=== PATIENT | male | born 1980 | race Caucasian/White ===

== ENCOUNTER 2025-05-25 18:46 | Emergency (ER) | payer OTHER, SELFPAY ==
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
[2025-05-25 18:46] VITALS: BP 132/90; PULSE 100; RESP 18; TEMP 37.3; O2SAT 98
[2025-05-25 18:50] VITALS: BP 139/97; PULSE 107; RESP 20; TEMP 36.8; O2SAT 98
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
--- NOTE | 2025-05-25 19:13 | PC.NURSE ---
report to luna whitfield
--- OUTSIDE RECORDS SUMMARY | 2025-05-25 19:21 | XMS_ITS | Encounter Summary ---
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 Legal Sex Male 5:49 PM WET PROCESS OPERATOR Gender Identity Male 10/08/2021 8:37 AM WET PROCESS OPERATOR Sexual Orientation Straight 10/08/2021 8: 37 AM WET PROCESS OPERATOR documented as of this encounter Plan of Treatment Not on file documented as of this encounter Visit Diagnoses Not on filedocumented in this encounter Additional Health Concerns Infection Onset Date Last Indicated Resolved Time COVID-19 Rule Out 05/17/2024 05/17/2024 05/17/2024 11:41 AM CDT documented as of this encounter Care Teams Customer Relations Advisor Relationship Specialty Start Date End Date See Lenz MD [address] [place] [id number] PCP - General FAMILY PRACTICE 06/12/20 documented as of this encounter
--- OUTSIDE RECORDS SUMMARY | 2025-05-25 19:21 | XMS_ITS | Clinical Summary ---
Author Organization [facility] Address [address] [place] [address] Care Team Providers Care Gym Supervisor Name Role Phone See Lenz MD Primary Care Provider [phone] Allergies No known active allergies Medications cyclobenzaprine (FLEXERIL) 10 MG tablet Take 1 tablet (10 mg total) by mouth 3 (three) times daily. 10/24/2024 Active lisinopril (PRINIVIL) 40 MG tablet Take 1 tablet (40 mg total) by mouth daily. 10/24/2024 Active hydroCHLOROthia zide (HYDRODIURIL) 25 MG tablet Take 1 tablet (25 mg total) by mouth daily. 10/24/2024 Active famotidine (PEPCID) 20 MG tablet Take 1 tablet (20 mg total) by mouth 2 (two) times daily. 60 tablet 02/22/2025 Active ondansetron (ZOFRAN) 4 MG tablet Take 1 tablet (4 mg total) by mouth every 8 (eight) hours as needed for Nausea. 20 tablet 04/25/2025 Active amoxicillin-cla vulanate (AUGMENTIN) 875-125 MG tablet Take 1 tablet (875 mg total) by mouth 2 (two) times daily for 7 days. 14 tablet 04/25/2025 Active Problems Problem Noted Date Diagnosed Date Pain of left lower extremity 01/24/2024 Encounters Date Type Department Care Team Description 04/25/2025 10:19 AM CDT - 04/25/2025 12:35 PM CDT Emergency [facility] [address] [facility] [place] [address] Wendy Harris MD Abdominal Pain Discharge Disposition: Home or Self Care (Routine Discharge) 04/25/2025 Travel 02/22/2025 10:19 AM CDT - 02/22/2025 11:25 AM CDT [facility] [address] [facility] [place] [address] Puneet Truong, Gout Pain Discharge Disposition: Home or Self Care (Routine Discharge) 02/22/2025 Travel from Last 3 Months Family History Medical History Relation Comments No Known Problems Mother Relation Status Comments Father Mother Alive Social History Tobacco Use Types Packs/Day Years Used Date Smoking Tobacco: Every Day Cigarettes Smokeless Tobacco: Never Tobacco Cessation:Ready to Q uit: Not Asked; Counseling Given: Not Answered Alcohol Use Standard Drinks/Week Comments Not Currently 0 (1 standard drink = 0.6 oz pur e alcohol) Sex and Gender Information Value Date Recorded Sex Assigned at Male 10/31/2024 12:46 PM 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 SERVICE TECHNICIAN Legal Sex Male 5:49 PM HUMAN SERVICE TECHNICIAN Gender Identity Male 10/08/2021 8:37 AM HUMAN SERVICE TECHNICIAN Sexual Orientation Straight 10/08/2021 8: 37 AM HUMAN SERVICE TECHNICIAN Last Filed Vital Signs Vital Sign Reading Time Taken Comments Blood Pressure 117/64 04/25/2025 12:30 PM CDT Pulse 87 04/25/2025 12:30 PM CDT Temperature 36.3 C (97.4 F) 04/25/2025 10:20 AM CDT Respiratory Rate 17 04/25/2025 12:3 0 PM CDT Oxygen Saturation 93% 04/25/2025 12: 30 PM CDT Inhaled Oxygen Concentration - - Weight 104.5 kg (230 lb 6.4 oz) 025 10:20 AM CDT Height 172.7 cm (5' 8) 04/25/2025 10:2 0 AM CDT Body Mass Index 35.03 04/25/2025 10:20 AM CDT Plan of Treatment Health Maintenance Due Date Last Done Comments Annual Physical 02/19/1984 Hepatitis C 1999 DTaP, Tdap and Td Vaccines (1 - Tdap) 02/19/2000 12/19/1985, 04/22/1983, 1981, Additional history exists Hepatitis B Vaccines (1 of 3 - 19+ 3-dose series) 02/19/2000 Pneumococcal Vaccine: Pediatrics (0 to 5 Years) and At-Risk Patients (6 to 49 Years) (1 of 2 - PCV) 02/19/2000 HPV Vaccines (1 - 3-dose SCDM series) 02/19/2008 COVID-19 Vaccine (2023- season) 2024 Meningococcal B Vaccine Aged Out No l onger eligible based on patient's age to complete this topic Meningococcal Vaccine Aged Out No mamie celia eligible based on patient's age to complete this topic RSV Immunizations Under 20 Months Aged Out No longer eligible based on patient's age to complete this topic Procedures Procedure Name Priority Date/Time Associated Diagnosis Comments CT ABD+PEL W CON STAT 04/25/2025 11:4 1 AM CDT HC URINALYSIS AUTO W/MICRO STAT 04/25/2025 11:30 AM CDT LIPASE STAT 04/25/2025 10:58 AM CDT HEPATIC FUNCTION PANEL STAT 10:58 AM CDT BASIC METABOLIC PANEL STAT 04/25/2025 10:58 AM CDT CBC W/DIFF AUTOMATED STAT 04/25/2025 10:58 AM CDT ANTINUCLEAR ANTIBODY WI RFX STAT 02/22/2025 10:57 AM CDT C-REACTIVE PROTEIN STAT 02/22/2025 10 :57 AM CDT SED RATE, ERYTHROCYTE (ESR) STAT 02/22/2025 10:57 AM CDT COMPREHENSIVE METABOLIC PANEL STAT 02/22/2025 10:57 AM CDT CBC W/DIFF AUTOMATED STAT 02/22/2025 10:57 AM CDT from Last 3 Months Results * CT ABD+PEL W CON (04/25/2025 11:41 AM CDT) Anatomical Region Laterality Modality Abdomen Computed Tomogra phy 04/25/2025 11:4 7 AM CDT Impressions 04/25/2025 12:02 PM CDT IMPRESSION: 1. Mild acute uncomplicated sigmoid diverticulitis as described. 2. Incidental right adrenal adenoma. Ordered By: WENDY HARRIS Interpreted By: Samuel Cortez MD, 04/25/2025 11:47 AM Narrative 04/25/2025 12:02 PM CDT [facility] [address] [facility] [place] [address] Examination: CT of the abdomen and pelvis with contrast. Exam time: 1136 hours. Clinical history: Lower abdominal pain. Nausea and vomiting. Leukocytosis. Normal serum lipase. Comparison: Aortoiliac CTA with runoff, 10/31/2024, noncontrast CT of the lumbar spine, 01/24/2024. Technique: Following the administration of intravenous contrast, spiral scanning was performed through the abdomen and pelvis. Coronal and sagittal reconstructions were performed from the data set. A dose lowering technique was used for this procedure, which may include, but is not limited to, dose reduction techniques, automated exposure control, the use of iterative reconstruction and ALARA/Image Gently techniques. Findings: Allowing for minor respiratory motion, the lung bases are clear. No pleural effusions are seen. Approximately 1.4 cm right adrenal nodule is stable in size since 01/24/2024 and of fat attenuation on the noncontrast images compatible with an incidental adenoma. No further workup or surveillance is required. The liver, spleen, gallbladder, pancreas, adrenals and kidneys are otherwise unremarkable. The urinary bladder is nondistended. A normal-appearing appendix is visible. Colonic diverticulosis is again evident. There are new mild infiltrative changes in the pericolic fat at the level of the mid to proximal sigmoid colon (coronal image 48 for example), compatible with diverticulitis. No abscess or other complication is identified. There are a few reactive appearing left common and external iliac lymph nodes. There is no ascites, free air, ivan lymphadenopathy or bowel distention. The caliber of the abdominal aorta is normal. Procedure Note Samuel Cortez MD - 04/25/2025 [facility] [address] [place] [address] Examination: CT of the abdomen and pelvis with contrast. Exam time: 1136 hours. Clinical history: Lower abdominal pain. Nausea and vomiting. Leukocytosis.Normal serum lipase. Comparison: Aortoiliac CTA with runoff, 10/31/2024, noncontrast CT of thelumbar spine, 01/24/2024. Technique: Following the administration of intravenous contrast, spiralscanning was performed through the abdomen and pelvis. Coronal andsagittal reconstructions were performed from the data set. A dose loweringtechnique was used for this procedure, which may include, but is notlimited to, dose reduction techniques, automated exposure control, the useof iterative reconstruction and ALARA/Image Gently techniques. Findings: Allowing for minor respiratory motion, the lung bases are clear.No pleural effusions are seen. Approximately 1.4 cm right adrenal noduleis stable in size since 01/24/2024 and of fat attenuation on thenoncontrast images compatible with an incidental adenoma. No furtherworkup or surveillance is required. The liver, spleen, gallbladder,pancreas, adrenals and kidneys are otherwise unremarkable. The urinarybladder is nondistended. A normal-appearing appendix is visible. Colonicdiverticulosis is again evident. There are new mild infiltrative changesin the pericolic fat at the level of the mid to proximal sigmoid colon(coronal image 48 for example), compatible with diverticulitis. No abscessor other complication is identified. There are a few reactive appearingleft common and external iliac lymph nodes. There is no ascites, free air,ivan lymphadenopathy or bowel distention. The caliber of the abdominalaorta is normal. IMPRESSION: 1. Mild acute uncomplicated sigmoid diverticulitis as described. 2. Incidental right adrenal adenoma. Ordered By: WENDY HARRIS Interpreted By: Samuel Cortez MD, 04/25/2025 11:47 AM us Wendy Harris MD CT Final Resul t * URINALYSIS (04/25/2025 11:30 AM CDT) COLOR (U) YELLOW 04/25/2025 11:58 AM CDT [facility] TRANSPARENCY CLEAR 04/25/2025 11:58 AM CDT [facility] SPECIFIC GRAVITY (U) 1.015 1.000 - 1.025 04/25/2025 11:58 AM CDT [facility] U PH 7.5 5.0 - 8.0 04/25/2025 11:58 AM CDT [facility] LEUKOCYTES (U) NEGATIVE NEGATIVE 04/25/2025 11:58 AM CDT [facility] NITRITES NEGATIVE NEGATIVE 04/25/2025 11:58 AM CDT [facility] PROTEIN RANDOM (U) NEGATIVE NEGATIVE 04/25/2025 11:58 AM CDT [facility] GLUCOSE (U) NEGATIVE NEGATIVE 04/25/2025 11:58 AM CDT [facility] KETONES MG/DL (U) NEGATIVE NEGATIVE 04/25/2025 11:58 AM CDT [facility] UROBILINOGEN 0.2 <1.0 EU/DL 04/25/2025 11:58 AM CDT [facility] BILIRUBIN (U) NEGATIVE NEGATIVE 04/25/2025 11:58 AM CDT [facility] BLOOD (U) NEGATIVE NEGATIVE 04/25/2025 11:58 AM CDT [facility] WBC/HPF 0-5 0 - 5 /HPF 04/25/2025 11:58 AM CDT [facility] RBC/HPF 0-5 0 - 5 /HPF 04/25/2025 11:58 AM CDT [facility] EPI/LPF OCCASIONAL /LPF 04/25/2025 11:58 AM CDT [facility] BACTERIA (U) TRACE /HPF 04/25/2025 11:58 AM CDT [facility] URINE SPECIMEN OBTAINED BY CLEAN CATCH PROCEDURE / Unknown 04/25/2025 11:30 AM CDT us Wendy Harris MD URINE ORDERABLES Final Resu lt [facility] [address] [place] [address], * (ABNORMAL) BASIC METABOLIC PANEL (04/25/2025 10:58 AM CDT) SODIUM S/P/B 138 136 - 145 MMOL/L 04/25/2025 11:25 AM CDT [facility] POTASSIUM S/P/B 4.2 3.5 - 5.1 MMOL/L 04/25/2025 11:25 AM CDT [facility] CHLORIDE S/P/B 101 98 - 107 MMOL/L 04/25/2025 11:25 AM CDT [facility] CO2 30.0 21.0 - 32.0 MMOL/L 04/25/2025 11:25 AM CDT [facility] GLUCOSE 126(H) 70 - 99 MG/DL 04/25/2025 11:25 AM T [facility] Comment: FASTING GLUCOSE 100 TO 125 MG/DL IS CONSISTENT WITH IMPAIRED FASTING GLUCOSE. FASTING GLUCOSE >125 MG/DL IS CONSISTENT WITH DIABETES. RANDOM GLUCOSE >200 MG/DL WITH HYPERGLYCEMIC SYMPTOMS IS CONSISTENT WITH DIABETES. PER ADA GUIDELINES BUN 14 6 - 24 MG/DL 04/25/2025 11:25 AM CDT [facility] CREATININE S/P/B 0.87 0.70 - 1.30 MG/DL 04/25/2025 11:25 AM CDT [facility] CALCIUM S/P/B 9.0 8.4 - 10.5 MG/DL 04/25/2025 11:25 AM CDT [facility] ANION GAP 7.0 5.0 - 15.0 MMOL/L 04/25/2025 11:25 AM T [facility] OSMOLALITY (CALC) 288 MOSM/KG 025 11:25 AM T [facility] Comment:REFERENCE RANGE NOT ESTABLISHED GFR ESTIMATE >90 >89 ML/MIN/1. 73 M2 04/25/2025 11:25 AM CDT [facility] GFR NOTES GFR REFERENCE S: 04/25/2025 11:25 AM CDT [facility] Comment: THE ESTIMATED GFR IS CALCULATED USING THE 2020 CKD-EPI EQUATION. THE FOLLOWING CATEGORIES FOR GRADING RENAL FUNCTION ARE RECOMMENDED BY THE INTERNATIONAL SOCIETY OF NEPHROLOGY (KDIGO 2012 CLINICAL PRACTICE GUIDELINE). G1,NORMAL OR HIGH: >89 ml/min/1.73 m2 G2,MILDLY DECREASED: 60-89 ml/min/1.73 m2 G3A,MILDLY TO MODERATELY DECREASED: 45-59 ml/min/1.73 m2 G3B,MODERATELY TO SEVERELY DECREASED: 30-44 ml/min/1.73 m2 G4,SEVERELY DECREASED: 15-29 ml/min/1.73 m2 G5,KIDNEY FAILURE: <15 ml/min/1.73 m2 04/25/2025 10:5 8 AM CDT us Wendy Harris MD LABORATORY Final Resul t [facility] [address] [place] [address], * HEPATIC FUNCTION PANEL (04/25/2025 10:58 AM CDT) BILIRUBIN TOTAL S/P/B 0.3 0.2 - 1.0 MG/DL 04/25/2025 11:25 AM CDT [facility] Comment: THIS ASSAY IS NOT RECOMMENDED FOR PATIENTS UNDERGOING TREATMENT WITH ELTROMBOPAG DUE TO THE POTENTIAL FOR FALSELY ELEVATED RESULTS. BILIRUBIN DIRECT S/P/B 0.1 0.0 - 0.2 MG/DL 04/25/2025 11:25 AM CDT [facility] ALKALINE PHOSPHATASE S/P/B 72 45 - 115 U/L 04/25/2025 11:25 AM CDT [facility] AST 18 15 - 37 U/L 04/25/2025 11:25 AM CDT [facility] ALT 21 16 - 63 U/L 04/25/2025 11:25 AM CDT [facility] TOTAL PROTEIN S/P/B 7.1 6.4 - 8.2 G/DL 04/25/2025 11:25 AM CDT [facility] ALBUMIN S/P/B 3.4 3.4 - 5.0 G/DL 04/25/2025 11:25 AM CDT [facility] 04/25/2025 10:5 8 AM CDT us Wendy Harris MD LABORATORY Final Resul t [facility] [address] [place] [address], * (ABNORMAL) CBC W/DIFF AUTOMATED (04/25/2025 10:58 AM CDT) Only the most recent of2 resultswithin the time period is included. WBC 10.96(H) 4.00 - 10.80 x10'3/uL 04/25/2025 11:07 AM CDT [facility] RBC 4.46(L) 4.50 - 6.10 x10'6/uL 04/25/2025 11:07 AM CDT [facility] HGB 12.5(L) 13.0 - 18.0 G/DL 04/25/2025 11:07 AM CDT [facility] HCT 37.7 37.0 - 52.0 % 04/25/2025 11:07 AM CDT [facility] MCV 84.5 78.0 - 100.0 FL 04/25/2025 11:07 AM CDT [facility] MCH 28.0 27.0 - 31.0 PG 04/25/2025 11:07 AM CDT [facility] MCHC 33.2 33.0 - 36.0 G/DL 04/25/2025 11:07 AM CDT [facility] RDW 15.2(H) 11.5 - 14.5 % 04/25/2025 11:07 AM CDT [facility] PLT 387(H) 150 - 350 x10'3/uL 04/25/2025 11:07 AM CDT [facility] MPV 10.1 7.4 - 10.4 FL 04/25/2025 11:07 AM CDT [facility] CBC COMMENT NORMAL REFERENCE RANGE NOT ESTABLISHED FOR THE PROPORTIONAL LEUKOCYTE DIFFERENTIAL. 04/25/2025 11:07 AM CDT [facility] NEUTROPHILS % 67.1 % 04/25/2025 11:07 AM CDT [facility] LYMPHOCYTES % 19.7 % 04/25/2025 11:07 AM CDT [facility] MONOCYTES % 8.5 % 04/25/2025 11:07 AM CDT [facility] EOSINOPHILS % 3.9 % 04/25/2025 11:07 AM CDT [facility] BASOPHILS % 0.6 % 04/25/2025 11:07 AM CDT [facility] IMMATURE GRANS % 0.2 % 04/25/20 11:07 AM CDT [facility] NRBC % 0.0 % 04/25/2025 11:07 AM CDT [facility] ABS. NEUTROPHILS 7.35 1.60 - 8.30 x10'3/uL 04/25/2025 11:07 AM CDT [facility] ABS. LYMPHOCYTES 2.16 0.80 - 4.70 x10'3/uL 04/25/2025 11:07 AM CDT [facility] ABS. MONOCYTES 0.93 0.00 - 1.50 x10'3/uL 04/25/2025 11:07 AM T [facility] ABS. EOSINOPHILS 0.43(H) 0.00 - 0.40 x10'3/uL 04/25/2025 11:07 AM CDT [facility] ABS. BASOPHILS 0.07 0.00 - 0.20 x10'3/uL 04/25/2025 11:07 AM CDT [facility] ABS. IMMATURE GRANULOCYTES 0.02 0.00 - 0.03 x10'3/uL 04/25/2025 11:07 AM T [facility] ABS. NUCLEATED RBC'S 0.00 0.00 - 0.01 x10'3/uL 04/25/2025 11:07 AM T [facility] 04/25/2025 10:5 8 AM CDT Wendy Harris MD LABORATORY Final Resul t Performing Organization Address City/[facility]/ZIP Co de Phone Number [facility] [address] [place] [address], * LIPASE (04/25/2025 10:58 AM CDT) LIPASE 33 16 - 77 UNITS/L 04/25/2025 11:25 AM CDT [facility] 04/25/2025 10:5 8 AM CDT Wendy Harris MD LABORATORY Final Resul t Performing Organization Address [facility] de Phone Number [facility] [address] [place] [address], * ANTINUCLEAR ANTIBODY WI RFX (02/22/2025 10:57 AM CDT) CARMELO 0.2 02/24/2025 4:42 PM CDT [facility] Comment: NEGATIVE: <0.7 RATIO CARMELO PROFILE AND TITER NOT PERFORMED THE CARMELO SCREEN TESTS FOR THE FOLLOWING ANTIBODIES BY EIA: SSA1 (RO), SSB1 (LA), MÉNDEZ, SCL70, JO1, CENTROMERE, HISTORICAL INTERPRETER HISTONE MUST BE ORDERED SEPARATELY DNA (DS) ANTIBODY 1.2 IU/ML 025 4:42 PM CDT [facility] Comment: NEGATIVE: <10 IU/mL EQUIVOCAL: 10 to 15 IU/mL POSITIVE: >15 IU/mL THIS QUANTITATIVE ASSAY IS CALIBRATED TO THE [employer]'S WO/80 STANDARD. THE LEVEL OF dsDNA AUTOANTIBODY GERERALLY CORRELATES WITH THE LEVEL OF DISEASE ACTIVITY IN SYSTEMIC LUPUS ERYTHMATOSUS 02/22/2025 10:5 7 AM CDT Puneet Truong DO LABORATORY Final Result Performing Organization Address City/[facility]/ZIP Co de Phone Number [facility] [address] [place] [address], [place] [phone] * (ABNORMAL) SED RATE, ERYTHROCYTE (ESR) (02/22/2025 10:57 AM CDT) Pathologist [facility] ESR 38(H) 0 - 15 MM/HR 02/22/2025 11:09 AM CDT [facility] 02/22/2025 10:5 7 AM CDT Puneet Truong DO LABORATORY Final Result [facility] [address] [place] [address], [place] [phone] * (ABNORMAL) COMPREHENSIVE METABOLIC PANEL (02/22/2025 10:57 AM CDT) Pathologist [facility] SODIUM S/P/B 135(L) 136 - 145 MMOL/L 02/22/2025 11:20 AM CDT [facility] POTASSIUM S/P/B 3.3(L) 3.5 - 5.1 MMOL/L 02/22/2025 11:20 AM CDT [facility] CHLORIDE S/P/B 98 98 - 107 MMOL/L 02/22/2025 11:20 AM CDT [facility] CO2 32.4(H) 21.0 - 32.0 MMOL/L 02/22/2025 11:20 AM CDT [facility] GLUCOSE 124(H) 70 - 99 MG/DL 02/22/2025 11:20 AM CDT [facility] Comment: FASTING GLUCOSE 100 TO 125 MG/DL IS CONSISTENT WITH IMPAIRED FASTING GLUCOSE. FASTING GLUCOSE >125 MG/DL IS CONSISTENT WITH DIABETES. RANDOM GLUCOSE >200 MG/DL WITH HYPERGLYCEMIC SYMPTOMS IS CONSISTENT WITH DIABETES. PER ADA GUIDELINES BUN 8 6 - 24 MG/DL 02/22/2025 11:20 AM CDT [facility] CREATININE S/P/B 0.97 0.70 - 1.30 MG/DL 02/22/2025 11:20 AM CDT [facility] CALCIUM S/P/B 8.8 8.4 - 10.5 MG/DL 02/22/2025 11:20 AM [facility] BILIRUBIN TOTAL S/P/B 0.4 0.2 - 1.0 MG/DL 02/22/2025 11:20 AM [facility] Comment: THIS ASSAY IS NOT RECOMMENDED FOR PATIENTS UNDERGOING TREATMENT WITH ELTROMBOPAG DUE TO THE POTENTIAL FOR FALSELY ELEVATED RESULTS. ALKALINE PHOSPHATASE S/P/B 77 45 - 115 U/L 02/22/2025 11:20 AM [facility] AST 13(L) 15 - 37 U/L 02/22/2025 11:20 AM [facility] ALT 23 16 - 63 U/L 02/22/2025 11:20 AM [facility] TOTAL PROTEIN S/P/B 7.5 6.4 - 8.2 G/DL 02/22/2025 11:20 AM [facility] ALBUMIN S/P/B 3.6 3.4 - 5.0 G/DL 02/22/2025 11:20 AM [facility] ANION GAP 4.6(L) 5.0 - 15.0 MMOL/L 02/22/2025 11:20 AM [facility] OSMOLALITY (CALC) 280 MOSM/KG 025 11:20 AM [facility] Comment:REFERENCE RANGE NOT ESTABLISHED GFR ESTIMATE >90 >89 ML/MIN/1. 73 M2 02/22/2025 11:20 AM [facility] GFR NOTES GFR REFERENCE S: 02/22/2025 11:20 AM [facility] Comment: THE ESTIMATED GFR IS CALCULATED USING THE 2020 CKD-EPI EQUATION. THE FOLLOWING CATEGORIES FOR GRADING RENAL FUNCTION ARE RECOMMENDED BY THE INTERNATIONAL SOCIETY OF NEPHROLOGY (KDIGO 2012 CLINICAL PRACTICE GUIDELINE). G1,NORMAL OR HIGH: >89 ml/min/1.73 m2 G2,MILDLY DECREASED: 60-89 ml/min/1.73 m2 G3A,MILDLY TO MODERATELY DECREASED: 45-59 ml/min/1.73 m2 G3B,MODERATELY TO SEVERELY DECREASED: 30-44 ml/min/1.73 m2 G4,SEVERELY DECREASED: 15-29 ml/min/1.73 m2 G5,KIDNEY FAILURE: <15 ml/min/1.73 m2 02/22/2025 10:5 7 AM CDT Puneet Truong DO LABORATORY Final Result Performing Organization Address City/[facility]/ZIP Co de Phone Number [facility] [address] [place] [address], * (ABNORMAL) C-REACTIVE PROTEIN (02/22/2025 10:57 AM CDT) C-REACTIVE PROTEIN 4.39(H) <0.30 mg/dL 02/22/2025 11:20 AM CDT [facility] 02/22/2025 10:5 7 AM CDT Puneet Truong DO LABORATORY Final Result Performing Organization Address [facility] Co de Phone Number [facility] [address] [place] [address], [place] [phone] from Last 3 Months Insurance [employer] Care Teams Gym Supervisor Relationship Specialty Start Date End Date See Lenz MD [address] [facility] [place] [phone] PCP - General FAMILY PRACTICE 06/12/20
[2025-05-25 20:35] VITALS: BP 121/68; PULSE 74; RESP 18; TEMP 36.6; O2SAT 100
== END 2025-05-25 20:35 | disposition home or self-care (01) ==
PROVIDERS: Emergency Provider Emergency Medicine; PCP Family Medicine
DX: S40.022A Contusion of left upper arm, initial encounter (principal); V43.63XA Car passenger injured in collision with pick-up truck in traffic accident, initial encounter
CPT/HCPCS: 73090; 99283